=== PATIENT | male | born 1955 | race Caucasian/White ===

== ENCOUNTER 2016-08-18 08:05 | Emergency (ER) | payer BC ==
[2016-08-18] MEDS ORDERED: NAPROXEN SODIUM 550 MG TABLET PO ONE (08:58)
--- NOTE | 2016-08-18 09:04 | ERNOTE ---
Lower Extremity HPI - General Lower Extremities Pain: knee: left Time Seen by Provider: 08/18/16 08:48 Source: patient Exam Limitations: no limitations - Immun/Allergies/Home Medications Immunizations: IMMUNIZATION HX Immunizations Up to Date unk History of Influenza Vaccine More Information Required Hx Pneumococcal Vaccination More Information Required Allergies/Adverse Reactions: Allergies Allergy/AdvReac Type Severity Reaction Status Date / Time No Known Allergies Allergy Unverified 08/18/16 08:18 Home Medications: HOME MEDICATIONS Aspirin [Aspirin EC] 81 mg PO DAILY 08/18/16 [Last Taken Unknown] Atorvastatin Calcium [Lipitor] 80 mg PO DAILY 08/18/16 [Last Taken Unknown] Diltiazem HCl [Diltiazem ER] 180 mg PO DAILY 08/18/16 [Last Taken Unknown] Levothyroxine Sodium [Synthroid] 125 mcg PO DAILY 08/18/16 [Last Taken Unknown] Losartan/Hydrochlorothiazide [Losartan-Hctz 100-12.5 mg Tab] 1 each PO DAILY 11/26 [Last Taken Unknown] Metoprolol Succinate [Toprol Xl] 50 mg PO DAILY 08/18/16 [Last Taken Unknown] Naproxen [Naprosyn] 500 mg PO BID #60 tablet 08/18/16 [Last Taken Unknown] Omeprazole 40 mg PO DAILY 08/18/16 [Last Taken Unknown] - History of Present Illness Narrative: Patient presents with chronic arthritic pains. He's had an exacerbation of pain in the left knee now having difficulty walking or climbing stairs because of pain. The pain is moderate in intensity and any range of motion exacerbates the pain. Occurred: other - over the past few days Location of Incident: home Method of Injury: Reports: no apparent injury Loss of Consciousness: Reports: no loss of consciousness Associated Symptoms: Reports: unable to bear weight - without significant pain Other Injuries: Reports: none Subsequent Symptoms: Reports: sensory loss Review of Systems - Review of Systems Constitutional: Present: See HPI EYE: Present: no symptoms reported ENT: Present: no symptoms reported Respiratory: Present: no symptoms reported Cardiology: Present: no symptoms reported Gastrointestinal/Abdominal: Present: no symptoms reported Genitourinary: Present: no symptoms reported Musculoskeletal: Present: muscle stiffness, joint pain, joint swelling Skin: Present: no symptoms reported Neurological: Present: no symptoms reported Endocrine: Present: no symptoms reported Hematologic/Lymphatic: Present: no symptoms reported Psych: Present: no symptoms reported - Patient's Past Medical History Patient History - Medical: GERD, Hypothyroidism Patient History - Cardiac/Respiratory: Hypertension, Hyperlipidemia, Myocardial Infarction Patient History - Cancer: No Hx of Cancer Patient History - Surgical Procedures: Cardiac stent, Other Patient History - Other: None - Social History Living Situations: home Abuse History: No History of abuse Psych History: No pertinent hx Smoking Status: Current every day smoker Have you smoked in the past 12 months: Yes - Immunizations Immunizations Up to Date: - unk Hx Pneumococcal Vaccination: More Information Required to Determine History of Influenza Vaccine: More Information Required to Determine Physical Exam - Physical Exam General Appearance: Present: wd/wn, alert, moderate distress Eye Exam: Normal inspection: bilateral, PERRL: bilateral Ears, Nose, Throat: Present: normal ENT inspection, H, normal pharynx Neck: Present: normal inspection, nontender Respiratory: Present: no respiratory distress, normal breath sounds, no accessory muscle use, chest nontender, lungs clear Cardiovascular/Chest: Present: regular rate, rhythm, no murmur, normal peripheral pulses Gastrointestinal/Abdominal: Present: normal bowel sounds, nontender, nondistended, soft, no organomegaly Rectal Exam: Present: deferred Back Exam: Present: normal inspection, normal range of motion Extremity Exam: Present: decreased range of motion, joint swelling, other - patient's drawer test appears to be intact, his MCL and LCL also appear to be intact, he has edema in the joint and appears to have pain on compression of the right medial meniscus. Neurological Exam: Present: alert, oriented, normal mood/affect Skin Exam: Present: normal color, warm/dry Lymphatic Exam: Present: no adenopathy ED Progress - Vital Signs Patient's Vital Signs:: I have reviewed the patient's vital signs. Vital Signs: Vital Signs 08/18/16 08:11 Temperature 36.7 C Pulse Rate 69 Respiratory 18 Rate Blood Pressure 154/93 O2 Sat by Pulse 95 Oximetry - X-Ray X-Ray #1 X-Ray: knee Interpretation: Reviewed by me - Progress/Reassessment Chief Complaint: Lower Extremity Pain/ Injury Plan - Plan Plan: X-ray examination of the left knee reveals both a degenerative changes and effusion over the medial compartment with the patient has pain. Patient would likely benefit from a trial course of steroids and I will have him follow-up with his family physician in one to 2 weeks and determination can be made at that point whether an orthopedic referral is reasonable. Departure Clinical Impression: Left knee sprain Qualifiers: Encounter type: initial encounter Involved ligament of knee: other ligament Qualified Code(s): S83.8X2A - Sprain of other specified parts of left knee, initial encounter - Departure Disposition: Home self-care Condition: Good Instructions: Knee Sprain, [id number], Meniscus Tear Prescriptions: Naproxen [Naprosyn] 500 mg PO BID #60 tablet
[2016-08-18] MEDS ORDERED: NAPROXEN SODIUM 550 MG TABLET ONE (09:37)
[2016-08-18 09:41] VITALS: BP 148/85
== END 2016-08-18 10:25 | disposition home or self-care (01) ==
LOC: ER 08:05
DX: S83.8X2A Sprain of other specified parts of left knee, initial encounter (principal); K21.9 Gastro-esophageal reflux disease without esophagitis; I10 Essential (primary) hypertension; E78.5 Hyperlipidemia, unspecified; E03.9 Hypothyroidism, unspecified; Z95.5 Presence of coronary angioplasty implant and graft; F17.200 Nicotine dependence, unspecified, uncomplicated; X50.1XXA Overexertion from prolonged static or awkward postures, initial encounter